=== PATIENT | female | born 1995 | race Caucasian/White ===

== ENCOUNTER 2020-08-07 05:33 | Inpatient (IN) | payer BC, OTHER ==
[2020-08-07 06:24] LABS: HEMOGLOBIN 11.6 gm/dl (12.3-15.3); RED BLOOD COUNT 4.36 M/UL (4.00-5.10); WHITE BLOOD COUNT 9.7 K/UL (4.5-11.0)
[2020-08-08 03:10] LABS: HEMOGLOBIN 9.2 gm/dl (12.3-15.3)
[2020-08-08] MEDS ORDERED: DOCUSATE SODIU100 MG PO (11:12)
[2020-08-08] MEDS ORDERED: IBUPROFEN600 MG PO (11:12)
== END 2020-08-08 18:04 | disposition home or self-care (01) | DRG 807 ==
LOC: OB 05:33
PROVIDERS: Obstetrics & Gynecology; ADMIT Obstetrics & Gynecology
PROC: 10E0XZZ Delivery of Products of Conception, External Approach (ICD-10-PCS; principal; 2020-08-07)
PROC: 0KQM0ZZ Repair Perineum Muscle, Open Approach (ICD-10-PCS; 2020-08-07)
PROC: 10907ZC Drainage of Amniotic Fluid, Therapeutic from Products of Conception, Via Natural or Artificial Opening (ICD-10-PCS; 2020-08-07)
PROC: 3E033VJ Introduction of Other Hormone into Peripheral Vein, Percutaneous Approach (ICD-10-PCS; 2020-08-07)
DX: O36.63X0 Maternal care for excessive fetal growth, third trimester, not applicable or unspecified (principal); Z37.0 Single live birth; Z3A.39 39 weeks gestation of pregnancy; Z20.822 Contact with and (suspected) exposure to COVID-19; O62.2 Other uterine inertia; O99.62 Diseases of the digestive system complicating childbirth; K58.9 Irritable bowel syndrome, unspecified; Z91.040 Latex allergy status; Z28.09 Immunization not carried out because of other contraindication; O70.1 Second degree perineal laceration during delivery
CPT/HCPCS: 36415; 51702; 81001; 82800; 85014; 85018; 85025; J2001; J2210; J2405; J2590; J2795; J7120; U0003